=== PATIENT | female | born 1960 | race Caucasian/White ===

== ENCOUNTER → 2017-03-18 | Outpatient (CLI) | payer BC ==
[~2017-03-18] MED LIST: CMD5 PO; ENOX80IN SC; OPTIRAY 320 IV PRN
--- NOTE | 2017-03-18 13:35 | DIAGNOSTIC IMAGING REPORT ---
ABD/PELVIS IV AND ORAL CONT CT DOSE: 624.25 mGy.cm HISTORY: Flank pain FLANK PAIN TECHNIQUE: Multiaxial CT images of the abdomen and pelvis were performed following the use of intravenous and oral contrast. A dose lowering technique was utilized adhering to the principles of ALARA. COMPARISON STUDY: None. FINDINGS: Lung bases are clear. Liver spleen and pancreas are uniform. Kidneys negative for hydronephrosis. Bowel pattern is nonobstructive. The appendix is normal. Several small uterine fibroids appear to be present. Osseous structures show minimal degenerative change. IMPRESSION: No acute process. The above report was generated using voice recognition software. It may contain grammatical, syntax or spelling errors. Electronically signed by: [place] Silveira M.D. 03/18/2017 1:33 PM Dictated Date/Time: 03/18/2017 1:31 PM
== END | disposition home or self-care (01) ==
LOC: C.CTS 12:45
PROVIDERS: ATTEND Family Medicine
DX: R10.9 Unspecified abdominal pain (principal)

== ENCOUNTER → 2017-06-08 | Outpatient (CLI) | payer BC ==
[~2017-06-08] MED LIST changes: -OPTIRAY 320 IV PRN
--- NOTE | 2017-06-08 14:26 | MAMMOGRAPHY REPORT ---
BILATERAL DIGITAL SCREENING MAMMOGRAM TOMOSYNTHESIS WITH CAD: 06/08/2017 CLINICAL HISTORY: Routine screening examination. TECHNIQUE: Breast tomosynthesis in addition to standard 2D mammography was performed. Current study was also evaluated with a Computer Aided Detection (CAD) system. COMPARISON: Comparison is made to exams dated: 07/20/2014 mammogram, 03/28/2013 mammogram, 03/23/2012 m ammogram, 02/26/2011 mammogram, 06/06/2009 mammogram - [facility], and 02/28/2008. BREAST COMPOSITION: There are scattered areas of fibroglandular density in both breasts. FINDINGS: There are stable intramammary lymph nodes in the right upper outer quadrant. Stable asymme try in the lateral left breast. No suspicious mass, architectural distortion or cluster of suspiciou s microcalcifications is seen. IMPRESSION: ACR BI-RADS CATEGORY 1: NEGATIVE There is no mammographic evidence of malignancy. A 1 year screening mammogram is recommended. The pa tient will receive written notification of the results. Approximately 10% of breast cancers are not detected with mammography. A negative mammographic report should not delay biopsy if a clinically suggestive mass is present. Bibiana Denton M.D. ay/:06/08/2017 08:11:10 Java Programming Professor: Estelle SPANGLER(Lea)(M), [facility] letter sent: Normal 1/2 BI-RADS Code: ACR BI-RADS Category 1: Negative
== END | disposition home or self-care (01) ==
LOC: C.MAMM 07:14
PROVIDERS: ATTEND Physician Assistant
DX: Z12.31 Encounter for screening mammogram for malignant neoplasm of breast (principal)

== ENCOUNTER → 2017-11-23 | Outpatient (CLI) | payer BC, OTHER | END | disposition home or self-care (01) | LOC: C.RDSM 11:00 | PROVIDERS: ATTEND Physical Medicine & Rehabilitation Sports Medicine | DX: M25.561 Pain in right knee (principal); M25.562 Pain in left knee ==

== ENCOUNTER → 2018-02-04 | Outpatient (CLI) | payer OTHER ==
[~2018-02-04] MED LIST changes: +CHOL1000 PO; -CMD5 PO; -ENOX80IN SC; +SIMV20TA2 PO; +WARF5TAB7 PO
--- NOTE | 2018-02-04 11:24 | DIAGNOSTIC IMAGING REPORT ---
CHEST 2 VIEWS ROUTINE CLINICAL HISTORY: Preoperative chest COMPARISON STUDY: 06/02/2008 FINDINGS: The cardiac and mediastinal contours are normal. There is no evidence of focal pulmonary consolidation. There is no evidence of failure. No pleural effusions are visualized.[ IMPRESSION: No active disease in the chest. Electronically signed by: Ike Ndiaye M.D. 02/04/2018 11:23 AM Dictated Date/Time: 02/04/2018 11:23 AM
[2018-02-04 11:59] LABS: BASO % 0.3 %; BASO ABS # 0.02 K/uL (0-0.2); EOS % 2.4 %; EOS ABS # 0.17 K/uL (0-0.5); HEMATOCRIT 40.5 % (37-47); HEMOGLOBIN 13.5 g/dL (12.0-16.0); IG# 0.02 K/uL (0.00-0.02); LYMPH % 27.9 %; LYMPH ABS # 1.95 K/uL (1.2-3.4); MEAN CELL VOLUME 84.7 fL (80-100); MEAN CORPUSCULAR HEMOGLOBIN 28.2 pg (25-34); MEAN CORPUSCULAR HGB CONC 33.3 g/dl (32-36); MEAN PLATELET VOLUME 10.2 fL (7.4-10.4); MONO % 5.7 %; NEUT % 63.4 %; NEUT ABS # 4.43 K/uL (1.4-6.5); PLATELET COUNT 299 K/uL (130-400); RED CELL DISTRIBUTION WIDTH CV 13.6 % (11.5-14.5); RED CELL DISTRIBUTION WIDTH SD 42.3 fL (36.4-46.3); WHITE BLOOD COUNT 6.99 K/uL (4.8-10.8)
[2018-02-04 12:12] LABS: INR 2.1 (0.9-1.1); PTT PATIENT 36.7 SECONDS (21.0-31.0)
[2018-02-04 12:41] LABS: BLOOD UREA NITROGEN 18 mg/dl (7-18); CALCIUM 9.5 mg/dl (8.5-10.1); CARBON DIOXIDE 26 mmol/L (21-32); CREATININE 1.01 mg/dl (0.60-1.20); GLUCOSE 95 mg/dl (70-99); POTASSIUM 4.1 mmol/L (3.5-5.1); SODIUM 138 mmol/L (136-145)
== END | disposition home or self-care (01) ==
LOC: C.LAB 08:00
PROVIDERS: ATTEND Physical Medicine & Rehabilitation Sports Medicine
DX: Z01.811 Encounter for preprocedural respiratory examination (principal); Z01.810 Encounter for preprocedural cardiovascular examination; Z01.812 Encounter for preprocedural laboratory examination

== ENCOUNTER 2019-03-15 06:05 | Inpatient (IN) ==
--- NOTE | 2019-02-23 14:07 | PAT Medication Instructions ---
Medication Instructions Date of Service February 23, 2019 Home Medications Medication Instructions Recorded docusate sodium 100 mg PO BID #30 tab 03/30/18 cholecalciferol (vitamin D3) [Vitamin D3] 1,000 unit PO QPM omeprazole 20 mg PO DAILY PRN simvastatin 20 mg PO PM metoprolol succinate 25 mg PO QAM docusate sodium 100 mg PO BID citalopram 10 mg PO QPM warfarin 2.5 mg PO Q OTHER DAY ASK your prescriber and surgeon warfarin 2.5 mg PO Q OTHER DAY DO NOT take the morning of surgery docusate sodium 100 mg PO BID Take morning of surgery With a small sip of water, OTHERWISE NOTHING TO EAT OR DRINK AFTER MIDNIGHT: omeprazole 20 mg PO DAILY PRN (if needed) metoprolol succinate 25 mg PO QAM Take evening before surgery cholecalciferol (vitamin D3) [Vitamin D3] 1,000 unit PO QPM omeprazole 20 mg PO DAILY PRN (if needed) simvastatin 20 mg PO PM docusate sodium 100 mg PO BID citalopram 10 mg PO QPM Other Notes If you have any questions please call us at [phone] or [phone] or [phone] or [phone]
--- NOTE | 2019-02-24 09:06 | Anesthesiology Consultation ---
Date of Service February 24, 2019 Assessment & Plan (1) Encounter for pre-operative examination: - Cardio: 02/10/19: "By the Conrado criteria this patient is low risk for cardiovascular event at 0.4%. She should proceed to surgery with an acceptable low risk of cardiovascular event. She is currently optimally medically managed. No additional cardiac testing will change that risk assessment. She does have a Leiden factor 5 deficiency along with paroxysmally atrial fibrillation for which she is anticoagulated. She can stop her warfarin 5 days prior to the surgery but will need a Lovenox bridge both prior to the surgery as well as postoperatively until her warfarin is therapeutic again." - Check coags AM DOS Chart Review Chart Review: Acceptable Risk for Surgery (pending surgeon-ordered PCP clearance (Dr. Javier, [facility])) and Patient seen in Pre Admission Testing Teaching & Discussion Pre-Anesthesia Teaching/Discussion Notes: Instructed NPO after midnight before surgery,except medications with 15 cc of water. Medication instructions provided according to the PAT guidelines. History Surgery Operation Date: 03/15/19 08:50 Proposed Procedures p Left Total Knee Arthroplasty - Saleem Figueroa MD Height/Weight Height: 5 ft 6 in Weight: 95.7 kg Allergies Allergy/AdvReac Type Severity Reaction Status Date / Time No Known Allergies Allergy Mild Verified 02/16/19 08:31 Medications Home Medications Medication Instructions Recorded Confirmed Last Taken cholecalciferol (vitamin D3) 1,000 unit PO QPM 03/24/18 02/16/19 03/22/18 [Vitamin D3] omeprazole 20 mg PO DAILY PRN 03/24/18 02/16/19 Unknown simvastatin 20 mg PO PM 03/24/18 02/16/19 03/28/18 08:00 metoprolol succinate 25 mg PO QAM 03/25/18 02/16/19 03/29/18 04:00 docusate sodium 100 mg PO BID #30 tab 03/30/18 02/16/19 Unknown citalopram 10 mg PO QPM 02/16/19 02/16/19 Unknown warfarin 2.5 mg PO Q OTHER DAY 02/16/19 02/16/19 Unknown Past Medical History Medical History GERD (gastroesophageal reflux disease) controlled Anxiety Atrial fibrillation paroxysmal Factor 5 Leiden mutation, heterozygous History of left bundle branch block (LBBB) dating back to at least 02/2018 Hx of deep venous thrombosis X2- 10 years ago; factor V Leiden- on warfarin Hyperlipidemia Obesity Osteoarthritis Exercise / Class Metabolic Activity II 4-5 Yardwork/Stairs/Walk up hill Past Family History Family History Brother Family history of diabetes mellitus Grandfather Family history of diabetes mellitus Family/Other Family hx of colon cancer Past Surgical History Surgical History History of colonoscopy X 3 History of total right knee replacement 03/29/18: SAB x1 at L4-L5 + PNB at [facility] Past Anesthesia History No Hx of Anesthesia Complications and No Family Hx of Anesthesia Complications History of PONV No Hx of PONV and No Hx of Motion Sickness Social History Smoking Status: Never smoker Do You Dip or Chew Tobacco: No Hx Alcohol Use: Yes alcohol intake frequency: holidays/special occasions only Hx Substance Use: No substance use type: does not use Review of Systems Reflux controlled. Patient denies chest pain, shortness of breath, dyspnea on exertion, cough, wheezing, palpitations. Physical Exam Vital Signs VITALS BP 113/76 P 72 TEMP 98.8 SP02 97%RA RESP 16 PHYSICAL Full neck and c-spine range of motion. Full TMJ range of motion. TMD 3 finger breaths Mallampati Score 3 Dentition: intact, several crowns on molars Lungs: clear throughout to auscultation Cardiac: regular rate and rhythm, no murmurs noted Spine: normal Carotid arteries: negative bruit Extremities: no edema Testing Laboratory Results 02/24/19 09:20 02/24/19 09:20 PT 29.3 Seconds (9.0-12.0) H 02/24/19 09:20 INR 3.1 (0.9-1.1) H 02/24/19 09:20 APTT 43.9 Seconds (21.0-31.0) H 02/24/19 09:20 Urine Color Yellow 02/24/19 09:20 Urine Appearance Clear (Clear) 02/24/19 09:20 Urine pH 7.5 (4.5-7.5) 02/24/19 09:20 Ur Specific [place] 1.020 (1.000-1.030) 02/24/19 09:20 Urine Protein Negative (Negative) 02/24/19 09:20 Urine Glucose (UA) Negative (Negative) 02/24/19 09:20 Urine Ketones Negative (Negative) 02/24/19 09:20 Urine Nitrite Negative (Negative) 02/24/19 09:20 Ur Leukocyte Esterase 1+ (Negative) H 02/24/19 09:20 Urine WBC (Auto) 5-10 /hpf (0-5) H 02/24/19 09:20 Urine RBC (Auto) 5-10 /hpf (0-4) H 02/24/19 09:20 U Hyaline Cast (Auto) 0 /lpf (0-5) 02/24/19 09:20 U Epithel Cells (Auto) >30 /lpf (0-5) H 02/24/19 09:20 Urine Bacteria (Auto) Negative (Negative) 02/24/19 09:20 Blood Type A Positive 02/24/19 09:20 Antibody Screen NEGATIVE 02/24/19 09:20 Electrocardiogram Date: 02/10/19 NSR at 79bpm. LBBB (chronic). Chest X-Ray Date: 02/24/19 Findings: + NAD Echocardiogram Date: 03/02/19 EF 60-65%. No RWMA. No significant valvular disease. Stress Test Date: 02/16/18 Type: nuclear (Lexiscan) Stress test negative for inducible ischemia at 87%MPHR. Consistent with LBBB. EF 68%.
--- NOTE | 2019-02-24 09:40 | XRay Report ---
XR chest Pre-admission PA/Lat CLINICAL HISTORY: PAT preoperative COMPARISON STUDY: No previous studies for comparison. FINDINGS: The bones soft tissues and hemidiaphragms are normal. The cardiomediastinal silhouette is n ormal. The lungs are clear. The pulmonary vasculature is normal. IMPRESSION: Negative chest. The above report was generated using voice recognition software. It may contain grammatical, syntax or spelling errors. Electronically signed by: [place] Silveira M.D. 02/24/2019 9:38 AM
[2019-02-24 11:49] LABS: Basophils # (auto) 0.01 K/uL (0-0.2); Basophils % (auto) 0.2 %; Eosinophils # (auto) 0.17 K/uL (0-0.5); Eosinophils % (auto) 2.8 %; Hematocrit (blood only) 38.6 % (37-47); Hemoglobin 12.8 g/dL (12.0-16.0); Immature Granulocytes # (auto) 0.01 K/uL (0.00-0.02); Immature Granulocytes % (auto) 0.2 %; Lymphocytes # (auto) 1.33 K/uL (1.2-3.4); Mean Corpuscular Hemoglobin 28.5 pg (25-34); Mean Corpuscular Hgb Conc 33.2 g/dL (32-36); Mean Platelet Volume 10.5 fL (7.4-10.4); Monocytes # (auto) 0.48 K/uL (0.11-0.59); Monocytes % (auto) 7.9 %; Neutrophils # (auto) 4.05 K/uL (1.4-6.5); Neutrophils % (auto) 66.9 %; Platelet Count 272 K/uL (130-400); RDW Coefficient of Variation 14.1 % (11.5-14.5); RDW Standard Deviation 44.1 fL (36.4-46.3); Red Blood Count 4.49 M/uL (4.2-5.4); White Blood Count 6.05 K/uL (4.8-10.8)
[2019-02-24 11:56] LABS: Appearance Urine Clear (Clear); Bacteria Urine Automated Negative (Negative); Bilirubin Urine Negative (Negative); Blood Urine Negative (Negative); Cast Urine Automated 0 /lpf (0-5); Color Urine Yellow; Epithelial Cell Urine Auto >30 /lpf (0-5); Glucose Urine UA Negative (Negative); Ketones Urine Negative (Negative); Leukocyte Esterase Urine 1+ (Negative); Nitrite Urine Negative (Negative); Protein Urine Negative (Negative); Urobilinogen Urine Negative (Negative); pH Urine 7.5 (4.5-7.5)
[2019-02-24 12:02] LABS: INR 3.1 (0.9-1.1); Partial Thromboplastin Ratio 1.6; Partial Thromboplastin Time 43.9 Seconds (21.0-31.0); Prothrombin Time 29.3 Seconds (9.0-12.0)
[2019-02-24 12:18] LABS: BUN Creatinine Ratio 21.9 (10-20); Calcium 9.4 mg/dl (8.5-10.1); Creatinine Clr Calc Pharmacy 81.3 ml/min; Est GFR (African American) 83.9; Est GFR (Non-African American) 72.4; Potassium 4.1 mmol/L (3.5-5.1)
--- NOTE | 2019-02-27 16:51 | History and Physical Report ---
DATE OF ADMISSION: 03/15/2019 CHIEF COMPLAINT: Left knee pain. HISTORY OF PRESENT ILLNESS: This 58-year-old white female presents to the office with complaints of left knee pain for several years. She has tried activity modification, oral pain medication, viscosupplementation injections, cortisone injections, and physical therapy without lasting improvement. She elects to proceed with left total knee arthroplasty in hopes of alleviating her pain. No numbness or tingling. No recent injury. She denies any current effusion. Preoperative imaging has been obtained. She has a history of previous right total knee arthroplasty on 03/29/2018 and has done well with that. She elects to proceed with the same on the left. No catching or locking. No buckling. Pain is worse with ambulation and is affecting her ADLs. PAST MEDICAL HISTORY: Significant for factor V Leiden mutation, atrial fibrillation, left bundle branch block, elevated cholesterol, migraine headaches, history of DVT x2, osteoarthritis, GERD, obesity. First DVT was 11 years ago, second DVT was 10 years ago. PAST SURGICAL HISTORY: Colonoscopy x3, right total knee arthroplasty 03/29/2018. FAMILY HISTORY: Significant for an uncle who had a stroke and her father who had a massive PE and . Also, history of cancer. Mother is healthy. ALLERGIES: NKDA. CURRENT MEDICATIONS: Warfarin 5 mg/2.5 mg alternating, simvastatin 20 mg daily, metoprolol 25 mg daily, escitalopram 10 mg p.o. daily, omeprazole p.r.n., vitamin D 1000 units daily. REVIEW OF SYSTEMS: A total of 10 systems are reviewed and are significant only for above stated conditions. PHYSICAL EXAMINATION: GENERAL: Well-developed, well-nourished middle aged white female in no acute distress. Sitting in a chair. Alert and oriented. VITAL SIGNS: Weight 95.8 kilos, height 168 cm, BP 142/84, pulse 81, temperature 98.2. O2 98% on room air. SKIN: Warm and dry with good turgor. No rashes or lesions. No ecchymosis or erythema. HEENT: Normocephalic, atraumatic. Eyes: PERRLA, EOMI. Nares patent bilaterally without turbinate enlargement. Oropharynx without erythema or exudate. No lesions noted. Uvula midline. Oral mucosa moist. Good dentition. Dental caps are noted. HEART: RRR. No MGR. LUNGS: Clear to auscultation bilaterally. No crackles, rhonchi or wheezing. Good air movement. ABDOMEN: Obese. Bowel sounds present x4, soft, nontender. No organomegaly. No masses. MUSCULOSKELETAL: Left knee has full terminal extension. Flexion to greater than 100 degrees. Strength is 5/5 with fair quad tone. Stable collateral ligaments. Focal discomfort with palpation over the medial and lateral joint lines. Medial was worst. No defect in the patellar tendon or quadriceps tendon. She is able to perform a straight leg raise. No intraarticular effusion. Ambulatory with an antalgic gait. NEUROLOGIC: Cranial nerves II through XII are intact. Gross sensation is intact across both lower extremities by soft touch. Peripheral pulses are 2+. DATA: Radiographic imaging previously obtained shows end-stage DJD of the left knee. Medial joint space narrowing, periarticular osteophytes, and subchondral sclerosis are all present. IMPRESSION: Left knee end-stage degenerative joint disease. PLAN: Postoperative prescriptions for Percocet will be provided at discharge from the hospital. She does get nauseated and constipated with narcotics. She may require some additional medication. Preoperative lab work, EKG, and chest x-ray have been ordered. She already has obtained written clearance from Dr. Quintanilla from cardiology. Dr. Javier has also cleared her. She will stop her Coumadin 5 days prior to surgery and bridge with Lovenox preoperatively. Anticipate discharge to home with home health services. She already has a walker and cane.
[~2019-03-15 06:05] MED LIST changes: +CEFAZOLIN 2000MG 2,000 MG/15 ML SYR IV SCH; -CHOL1000 PO; +LR 500ML BOLUS IV SCH; +LR 500ML BOLUS, THEN 15ML/HR IV SCH; +LR 60ML/HR IV SCH; +ROPIVACAINE 0.5% HCL/PF 150 MG, BUPIVACAINE 0.5% MPF 30 ML, EPINEPHrine 0.15 MG, Ketoro... INFIL SCH; -SIMV20TA2 PO; +TRANEXAMIC ACID 1,000 MG x 1 **For Topical Use TOP SCH; -WARF5TAB7 PO
[2019-03-15] MEDS ORDERED: TRANEXAMIC ACID 1,000 MG **IV Intra-op IV SCH (06:30)
--- NOTE | 2019-03-15 06:30 | History & Physical Bridge Note ---
Date of Service March 15, 2019 History & Physical Bridge Note I have examined the patient, reviewed the History & Physical and in the interval since the performance of the History & Physical I have noted the following changes of clinical significance:consent obtained. no changes noted
[2019-03-15 06:52] LABS: INR 1.1 (0.9-1.1); Partial Thromboplastin Time 26.5 Seconds (21.0-31.0); Prothrombin Time 10.9 Seconds (9.0-12.0)
[2019-03-15] MEDS ORDERED: BUPIVACAINE 0.5 % 5 MG/1 ML PF 10ML VIAL ONE (07:19)
[2019-03-15] MEDS ORDERED: BUPIVACAINE 0.25% 30 ML VIAL ONE (07:19)
[2019-03-15] MEDS ORDERED: MIDAZOLAM HCL 1 MG/ML 2ML VIAL ONE (07:36)
[2019-03-15] MEDS ORDERED: LIDOCAINE HCL 2% 2 ML VIAL/AMP(20MG/ML) INFIL ONE (07:36)
[2019-03-15] MEDS ORDERED: fentaNYL citrate 100 MCG/2 ML VIAL ONE (07:36)
[2019-03-15] MEDS ORDERED: PROPOFOL IV EMULSION 10 MG/ML 20 ML VIAL IV ONE ×2 (07:36→09:36)
[2019-03-15] MEDS ORDERED: ORTHO JOINT ANESTHETIC ONE (08:42)
[2019-03-15] MEDS ORDERED: ATROPINE SULFATE 0.1 MG/ML 10ML SYR IV PRN (08:45)
[2019-03-15] MEDS ORDERED: ePHEDrine sulfate 50 MG/ML AMP IV PRN (08:45)
[2019-03-15] MEDS ORDERED: ONDANSETRON INJ 2 MG/ML 2 ML VIAL ONE (09:17)
--- NOTE | 2019-03-15 10:34 | Post Operative Brief Note ---
Immediate Post Op Note v1 Date of Surgery March 15, 2019 Pre & Post Diagnosis Operation Date: 03/15/19 08:50 Pre-Op Diagnosis: Left Knee End-Stage Degenerative Joint Disease Post-Op Diagnosis: Left Knee End-Stage Degenerative Joint Disease Procedure Operation Date: 03/15/19 08:50 Actual Procedures p Left Total Knee Arthroplasty(Left) - Saleem Figueroa MD Surgeon Saleem Figueroa MD Forensic Identification [facility] Estimated Blood Loss 25 Findings Consistent with Post-Op Diagnosis
--- NOTE | 2019-03-15 10:41 | Operative Report ---
Post Operative Report Pre & Post Diagnosis Operation Date: 03/15/19 08:50 Pre-Op Diagnosis: Left Knee End-Stage Degenerative Joint Disease Post-Op Diagnosis: Left Knee End-Stage Degenerative Joint Disease Procedure Operation Date: 03/15/19 08:50 Actual Procedures p Left Total Knee Arthroplasty(Left) - Saleem Figueroa MD Surgeon JOSE C Figueroa MD Diesel Fitter Mechanic seservando Estimated Blood Loss 25 Findings Consistent with Post-Op Diagnosis Specimens see operative report Drains none Complications none Disposition Accompanied Patient To Recovery: Yes Disposition: Recovery Room Indications This 58-year-old white female presented to the office with complaints of intractable left knee pain. She had tried conservative care measures without improvement. She previously had a right total knee arthroplasty and did well with it. She elected to proceed with the same on the left. Preoperative imaging was obtained. Description of Procedure Patient was administered a spinal anesthetic and then taken to the operating room where she was given sedation. She was prepped and draped in the usual sterile fashion. Please see Dr. Figueroa's operative report for specifics of the procedure. I was present for the entire case from initial patient positioning through final wound care. Assistance was provided in tissue retraction, hemostasis, trial implant placement, final implant placement, and final wound closure. Patient was taken to the recovery room in satisfactory condition. I attest to the content of the Intraoperative Record and any orders documented therein. Any exceptions are noted below.
--- NOTE | 2019-03-15 11:08 | XRay Report ---
XR knee LT 2V routine CLINICAL HISTORY: Surgical Post Op COMPARISON: None. DISCUSSION: Anatomic alignment posttotal left knee arthroplasty. Could contact between prosthetic and underlying bone. Expected soft tissue postoperative change IMPRESSION: Anatomic alignment posttotal left knee arthroplasty. The above report was generated using voice recognition software. It may contain grammatical, syntax or spelling errors. Electronically signed by: [place] Silveira M.D. 03/15/2019 11:06 AM
--- NOTE | 2019-03-15 11:13 | Operative Report ---
DATE OF OPERATION: 03/15/2019 SURGEON: Saleem Figueroa MD NEUROSURGICAL PHYSICIAN ASSISTANT: Cesar Luna PA-C. No resident or fellow available. PREOPERATIVE DIAGNOSIS: Osteoarthritis with varus flexion deformity. Tricompartmental changes, left knee. POSTOPERATIVE DIAGNOSIS: Same. OPERATION PERFORMED: Cemented left total knee replacement. SUMMARY OF IMPLANTS: Size 2.5 left femur, posterior cruciate substituting size 2.5 mobile bearing tray, size 12.5 mm thick PCL stabilizing insert. Oval domed 3 pegged patella size 38, 2 bags of Palacos G. Bone pathology pending. ESTIMATED BLOOD LOSS: 25 mL CRYSTALLOID: Per anesthesia. PERIOPERATIVE SITUATION: Medically cleared female with intractable knee pain, had her other side done in the recent past, has done well and wants to proceed with this side. OPERATION: The patient was identified, site verified, consent verified. Antibiotics confirmed as being given. The left lower extremity was prepped and draped in usual routine fashion. Midline exposure was utilized after tourniquet was inflated to 300 mmHg after exsanguination of limb with a rubber Esmarch bandage for a total of 51 minutes. Midline exposure utilized. Parapatellar arthrotomy performed. Synovectomy completed, osteophytes resected. Distal femur then entered. Cruciates then resected. Distal femur then resected 14 mm, proximal tibia 4 mm, the extension gap was excellent. Femur was sized between a 3 and a 2-1/2. It was measured 3, cut 2-1/2. No major notching occurred. The flexion gap was then checked. It was excellent. The remaining menisci were resected. The box cut was then made and a 2-1/2 fit well. The tibia was then broached and reamed to a 2-1/2 and the trial spacer with 10 and 12.5 tried; the 12.5 gave much more mid-range flexion stability, so that was utilized and it did not eliminate any extension. The patella tracked well. It was resected leaving about 15 mm. Seating holes made and the trial tracked well. It was a 38. Orthomix was then injected all around the knee including posteriorly. Once this was injected, all implants were removed and the Orthomix inserted topically for 3 minutes. This was then irrigated out and the permanent cemented into position in the following sequence of tibia, femur and patella. After 12 minutes, the tourniquet was released. No major bleeding encountered. Minor bleeding points controlled with electrocautery. After 14 minutes, the knee was flexed and ranged. There was no instability. The spacers were removed and there was no cement that needed to be extracted. It was then irrigated with Pulsavac, Betadine and then the permanent liner seated, knee reduced and closed at about 50 degrees of flexion with #2 Vicryl, 2-0 Vicryl, stainless steel clips. Appropriate dressing applied. The patient transferred to recovery room in satisfactory condition having tolerated the procedure well. I attest to the content of the Intraoperative Record and any orders documented therein. Any exception s are noted below.
--- NOTE | 2019-03-15 11:29 | Anesthesiology Progress Note ---
Date of Service March 15, 2019 Anesthesia Post Procedure Vital Signs Vital Signs: Temp Pulse Pulse Resp BP Pulse Ox 03/15/19 11:20 71 12 125/60 96 03/15/19 11:10 70 15 125/62 96 03/15/19 11:00 71 14 122/66 95 03/15/19 10:50 69 14 109/62 94 03/15/19 10:40 36.3 C L 75 17 100/59 L 97 03/15/19 06:56 37.0 C 90 18 167/85 H 98 Pain Intensity Left Knee: Pain Intensity: 0 Transfer of Care Handoff Completed per policy Notes Mental Status: alert / awake / arousable and participated in evaluation Nausea / Vomiting: adequately controlled Pain: adequately controlled Airway Patency, RR, SpO2: stable & adequate BP & HR: stable & adequate Hydration State: stable & adequate Neuraxial Anesthesia: was administered and sensory block is resolving Anesthetic Complications: no major complications apparent and Pt Satisfied with anesthetic care
[2019-03-15] MEDS ORDERED: OXYCODONE HCL IR 5 MG TAB (IMMEDIATE RELEASE) PO PRN (11:53)
[2019-03-15] MEDS ORDERED: DiphenhydrAMINE HCL 50 MG/ML VIAL IV PRN (11:53)
[2019-03-15] MEDS ORDERED: ALUMINUM/MAGNESIUM SUSP 30 ML UDC PO PRN (11:53)
[2019-03-15] MEDS ORDERED: BISACODYL 10 MG SUPP PR PRN (11:53)
[2019-03-15] MEDS ORDERED: ONDANSETRON INJ 2 MG/ML 2 ML VIAL IV PRN (11:53)
[2019-03-15] MEDS ORDERED: SODIUM CHLORIDE 0.9% 1000ML 1,000 ML IV SCH (11:53)
[2019-03-15] MEDS ORDERED: METOCLOPRAMIDE HCL INJ 5 MG/ML 2 ML VIAL IV PRN (11:53)
[2019-03-15] MEDS ORDERED: NALOXONE HCL 0.4 MG/1 ML VIAL/CARP IV PRN (11:53)
[2019-03-15] MEDS ORDERED: MAGNESIUM HYDROXIDE SUSP 30 ML UDC PO PRN (11:53)
[2019-03-15] MEDS ORDERED: HYDROmorphone INJ 0.5 MG/0.5 ML SYR IV PRN (11:53)
[2019-03-15] MEDS ORDERED: PANTOprazole 40 MG TAB PO PRN (12:30)
[2019-03-15] MEDS: ACETAMINOPHEN 500 MG TAB PO SCH ×2 (13:32→21:20)
[2019-03-15] MEDS: KETOROLAC 30 MG/ML VIAL IV SCH ×3 (13:33→23:48)
--- NOTE | 2019-03-15 13:44 | Progress Note ---
DATE: 03/15/2019 Postop check status post left total knee replacement. The patient is doing well, has no major issues. She denies any chest pain, shortness of breath, fever, chills, nausea, vomiting or headache. Vital signs are stable. She is afebrile. Postop x-rays look excellent. The femoral sciatic nerve function is excellent. PLAN: Doing well status post left total knee replacement. Continue postop care pathway. Discharge tomorrow.
[2019-03-15] MEDS ORDERED: ORTHO WARFARIN NOMOGRAM SCH (14:00)
--- NOTE | 2019-03-15 14:00 | Discharge Summary ---
CHIEF COMPLAINT: Left knee pain. HISTORY OF PRESENT ILLNESS: Underwent elective left total knee replacement. Hospital course has been uneventful. At this point in time, she will be discharged tomorrow with home health services. PAST MEDICAL HISTORY: Remarkable for Leiden factor V mutation, atrial fibrillation, left bundle-branch block, cholesterol elevation, migraine headaches, DVT x2, osteoarthritis, GERD, obesity. PAST SURGICAL HISTORY: Remarkable for colonoscopy, right knee replacement in 03/2018. FAMILY HISTORY: Remarkable for uncle with CVA. Massive PE in her father, history of cancer. Mother is healthy. ALLERGIES: None. CURRENT MEDICATIONS: Include warfarin 5 alternating with 2.5, simvastatin, metoprolol, escitalopram, omeprazole and vitamins. She will be discharged on her usual Coumadin. She will also have oxycodone for pain. REVIEW OF SYSTEMS: Noncontributory. ASSESSMENT: Overall, doing well status post left total knee replacement, high risk for DVT, PE. Continue her normal Coumadin. Follow up in 2 weeks for staple removal. Use a wound Prevena to control pressure on the wound due to the high potential for seroma/bleeding with the aggressive Coumadin treatment.I adjusted her lovenox to 50 mg bid to prevent wound issues, MTDD
[2019-03-15] MEDS: CEFAZOLIN 2000MG 2,000 MG/15 ML SYR IV SCH ×2 (14:40→21:20)
[2019-03-15] MEDS ORDERED: WARFARIN SOD 5 MG TAB PO ONE (16:00)
[2019-03-15] MEDS: ASCORBIC ACID 500 MG TAB PO SCH (17:00)
[2019-03-15] MEDS: FERROUS GLUCONATE 324 MG TAB PO SCH (17:02)
[2019-03-15] MEDS ORDERED: CITALOPRAM 20 MG TAB PO SCH (21:00)
[2019-03-15] MEDS ORDERED: SENNA 8.6 MG TAB PO SCH (21:00)
[2019-03-15] MEDS ORDERED: SIMVASTATIN 20 MG TAB PO SCH (21:00)
[2019-03-15] MEDS ORDERED: NON-FORMULARY MEDICATION (Docusate Sodium 100 MG) PO SCH (21:00)
[2019-03-15] MEDS: DOCUSATE SODIUM 100 MG CAP PO SCH (21:20)
[2019-03-16] MEDS: KETOROLAC 30 MG/ML VIAL IV SCH (05:33)
[2019-03-16] MEDS: ACETAMINOPHEN 500 MG TAB PO SCH ×2 (05:34→14:04)
[2019-03-16 06:41] LABS: Hematocrit (blood only) 36.6 % (37-47); Hemoglobin 12.2 g/dL (12.0-16.0); Mean Corpuscular Hemoglobin 28.6 pg (25-34); Mean Corpuscular Hgb Conc 33.3 g/dL (32-36); Mean Corpuscular Volume 85.9 fL (80-100); Mean Platelet Volume 9.9 fL (7.4-10.4); Platelet Count 272 K/uL (130-400); RDW Coefficient of Variation 13.8 % (11.5-14.5); RDW Standard Deviation 43.2 fL (36.4-46.3); Red Blood Count 4.26 M/uL (4.2-5.4); White Blood Count 11.96 K/uL (4.8-10.8)
[2019-03-16 06:50] LABS: INR 1.1 (0.9-1.1); Prothrombin Time 10.9 Seconds (9.0-12.0)
--- NOTE | 2019-03-16 06:55 | Progress Note ---
DATE: 03/16/2019 SUBJECTIVE: Postop day #1 status post left total knee replacement. The patient is doing very well, is dressed, is sitting up, is eating and drinking. Has no chest pain, shortness of breath, fever, chills, nausea, vomiting or headache. OBJECTIVE: Vital signs are stable. She is afebrile. Neurovascular check, femoral sciatic nerve is normal. Can do a straight leg raise. INR is 1.1. She will get a Coumadin dose per nomogram today. She will be discharged also with some Lovenox according to the anticoagulation clinic, but they really were very aggressive at 100 mg b.i.d. with Lovenox and asked her to cut that in half. She should start her Coumadin as per protocol. We will place a wound Prevena as well to try to minimize risk. Will follow up in 2 weeks for staple removal and in 1 week for wound Prevena change.
[2019-03-16 07:10] LABS: BUN Creatinine Ratio 18.3 (10-20); Creatinine Clr Calc Pharmacy 69.9 ml/min; Est GFR (African American) 70.2; Est GFR (Non-African American) 60.6; Potassium 3.9 mmol/L (3.5-5.1)
[2019-03-16] MEDS: FERROUS GLUCONATE 324 MG TAB PO SCH (07:35)
[2019-03-16] MEDS: DOCUSATE SODIUM 100 MG CAP PO SCH (07:35)
[2019-03-16] MEDS: ASCORBIC ACID 500 MG TAB PO SCH (07:36)
[2019-03-16] MEDS ORDERED: dexAMETHasone 10 MG in SYRINGE 0 ML IV SCH (08:00)
--- NOTE | 2019-03-16 08:21 | Anesthesiology Progress Note ---
Date of Service March 16, 2019 Anesthesia Post Procedure Vital Signs Vital Signs: Temp Pulse Pulse Resp BP BP Pulse Ox 03/16/19 07:19 36.3 C L 63 16 99/64 L 96 03/16/19 03:38 36.5 C 71 16 116/71 96 03/16/19 00:00 36.9 C 69 16 119/70 93 03/15/19 20:47 36.3 C L 72 18 114/70 93 03/15/19 16:56 37.0 C 67 18 116/72 95 03/15/19 14:00 36.3 C L 68 18 114/73 95 03/15/19 12:50 64 18 109/72 03/15/19 11:45 36.4 C L 72 15 114/73 94 03/15/19 11:30 36.3 C L 68 12 119/68 96 03/15/19 11:20 71 12 125/60 96 03/15/19 11:10 70 15 125/62 96 03/15/19 11:00 71 14 122/66 95 03/15/19 10:50 69 14 109/62 94 03/15/19 10:40 36.3 C L 75 17 100/59 L 97 Pain Intensity Left Knee: Pain Intensity: 0 Notes Mental Status: alert / awake / arousable and participated in evaluation Nausea / Vomiting: adequately controlled Pain: adequately controlled Airway Patency, RR, SpO2: stable & adequate BP & HR: stable & adequate Hydration State: stable & adequate
[2019-03-16] MEDS ORDERED: MULTIVITAMIN TAB PO SCH (09:00)
[2019-03-16] MEDS ORDERED: METOPROLOL SUCC 25MG EXT REL TAB PO SCH (09:00)
--- NOTE | 2019-03-16 09:56 | Orthopedic Progress Note ---
Date of Service March 16, 2019 Assessment & Plan (1) S/P total knee arthroplasty: PT/OT this AM Prevana Placment Ice with EZ wrap DVT prophylaxis with Coumadin and TEDs Pain control with PO [place] Biweekly INR checks x 6 wks Goal INR 1.8-2.2 WBAT with Immobilizer (first 48 hrs post op) and walker assistance Discharge home today with in-home therapy Follow up at [facility] in 1 wk to have Prevana removed and in 2 wks for staple removal With questions call Subjective This 58 yo F is day 1 s/p left total knee arthroplasty. She is doing very well and states that she is ready to go home. Pain is well controlled with PO meds. She has been ambulating to the bathroom and did well with PT this AM. Patient denies CP, SOB, nausea, vomiting, fever, chills, sweats and that she had a BM this AM which resolved some stomach cramping. Review of Systems Review of Systems: All systems reviewed & are unremarkable except as noted in HPI & below Physical Exam Physical Exam: Left Knee: Dressing removed. Wound intact with gonzález in place and no discharge. ROM actively from 0-80. Mild edema but no effusion. Quad strength 3.5/5 and able to perform SLRT. Calf soft and supple. Able to actively dorsi/plantar flex foot. NV intact. No TTP around incision site and able to depict light sensation to touch circumferentially around knee. Results & Data Vital Signs (Past 12 Hours) Vital Signs Temp Pulse Resp BP BP Pulse Ox 03/16/19 07:19 36.3 C L 63 16 99/64 L 96 03/16/19 03:38 36.5 C 71 16 116/71 96 03/16/19 00:00 36.9 C 69 16 119/70 93 Laboratory Results 03/16/19 03/16/19 03/16/19 Range/Units 06:21 06:21 06:21 WBC 11.96 H (4.8-10.8) K/uL RBC 4.26 (4.2-5.4) M/uL Hgb 12.2 (12.0-16.0) g/dL Hct 36.6 L (37-47) % MCV 85.9 (80-100) fL MCH 28.6 (25-34) pg MCHC 33.3 (32-36) g/dL RDW Std Deviation 43.2 (36.4-46.3) fL RDW Coeff of Meaghan 13.8 (11.5-14.5) % Plt Count 272 (130-400) K/uL MPV 9.9 (7.4-10.4) fL PT 10.9 (9.0-12.0) Seconds INR 1.1 (0.9-1.1) Sodium 140 (136-145) mmol/L Potassium 3.9 (3.5-5.1) mmol/L Chloride 107 (98-107) mmol/L Carbon Dioxide 25 (21-32) mmol/L Anion Gap 8.0 (3-11) BUN 19 H (7-18) mg/dl Creatinine 1.02 (0.6-1.2) mg/dl Est Cr Clr Drug Dosing 69.9 ml/min Est GFR ( Amer) 70.2 Est GFR (Non-Af Amer) 60.6 BUN/Creatinine Ratio 18.3 (10-20) Glucose 119 H (70-99) mg/dl Calcium 9.0 (8.5-10.1) mg/dl
[2019-03-16] MEDS ORDERED: WARFARIN SOD 5 MG TAB PO ONE (16:00)
== END 2019-03-16 14:46 | disposition home health service (06) | DRG 470 ==
LOC: ASU 06:05 → 3E 10:47